=== PATIENT | male | born 1990 | race Caucasian/White ===

== ENCOUNTER 2018-04-23 14:55 | Observation (INO) ==
[2018-04-23] MEDS ORDERED: Aspirin 81 MG TAB.CHEW PO ONE (15:17)
[2018-04-23] MEDS ORDERED: 0.9 % Sodium Chloride 1,000 ML IVC ONE (15:18)
--- NOTE | 2018-04-23 15:43 | Emergency Department Note ---
Disposition Clinical Impression: Tachycardia, Pleuritic chest pain Pneumonia Qualifiers: Pneumonia type: due to unspecified organism Laterality: unspecified laterality Lung location: unspecified part of lung Qualified Code(s): J18.9 - Pneumonia, unspecified organism Disposition: Admitted As Inpatient Condition: Fair Referrals: NONE,PCP [Primary Care Provider] - Forms: ED Satisfaction Letter General Adult HPI - General Chief complaint: ED Chest Pain Stated complaint: CP Time Seen by Provider: 04/23/18 15:03 Source: patient Mode of arrival: ambulatory Limitations: no limitations Nursing Notes Reviewed: Yes Vital Signs Reviewed: Yes - History of Present Illness HPI Narrative: 27-year-old male in no significant past medical history presenting to the emergency department chief complaint chest pain and shortness of breath. Patient states for approximately one week he has not been feeling well. He has had 2-3 loose stools a day, fevers at home controlled with ibuprofen. Yesterday he started having some shortness of breath and left-sided chest pain. Patient states the pain radiated down his left arm. Denies diaphoresis or nausea at that time. Patient has only tried ibuprofen for this at home. Denies any cardiac history. Denies being on any anticoagulation. Denies any known sick contacts. Patient denies any history of PE or DVT. Denies any hormone replacement therapy but he does [place]. Pain Scale: 6 - Related Data Home Medications Medication Instructions Recorded Confirmed No Known Home Drugs 04/23/18 04/23/18 Allergies Allergy/AdvReac Type Severity Reaction Status Date / Time No Known Allergies Allergy Verified 10/06/17 12:01 All systems ED: reviewed and negative except as stated. Constitutional: Reports: fever, chills Eyes: Reports: as per HPI ENT ED: Reports: as per HPI Cardiovascular: Reports: chest pain, dyspnea on exertion. Denies: palpitations Respiratory: Reports: dyspnea. Denies: cough, wheezes, hemoptysis, stridor Gastrointestinal: Reports: nausea. Denies: vomiting Genitourinary: Reports: as per HPI Musculoskeletal: Reports: as per HPI Integumentary: Denies: rash Neurological: Denies: numbness, paresthesias Psychiatric: Reports: as per HPI Endocrine: Reports: as per HPI Hematological/Lymphatic: Reports: as per HPI Allergic/Immunologic: Reports: as per HPI Past Medical History - Past Medical History Attestation: Yes The following information was validated with the patient. Medical history: Reports: no medical history Psychiatric history: Reports: no psych history - Social History Smoking Status: Current some day smoker Smokeless Tobacco Status: Yes Alcohol use: Reports: occasionally Drug use: Reports: none Physical Exam - General Limitations: no limitations General appearance: alert, in no apparent distress - Head Head exam: atraumatic, normocephalic, normal inspection - Eye Eye exam: Present: normal appearance. Absent: scleral icterus, conjunctival injection - ENT ENT exam: normal exam, mucous membranes moist - Neck Neck exam: Present: normal inspection, full ROM. Absent: tenderness, meningismus - Chest Chest inspection: Present: normal inspection, symmetric chest wall rise. Absent : tenderness, rash - Respiratory Respiratory exam: Present: other (Decreased breath sounds throughout). Absent: respiratory distress, stridor - Cardiovascular Cardiovascular exam: Present: normal rhythm, tachycardia, normal heart sounds - Abdominal Exam Abdominal exam: Present: soft, Non-Tender. Absent: distention, guarding, rebound - Extremities Exam Extremities exam: Present: normal inspection, full ROM - Neurological Exam Neurological exam: Present: alert, oriented X3 - Psychiatric Psychiatric exam: Present: normal affect, normal mood - Skin Skin exam: Present: diaphoresis Course Course Narrative: 27-year-old male presenting with tachycardia, chest pain and shortness of breath. Patient has been febrile at home. Physical exam shows sinus tachycardia, diaphoretic skin but otherwise benign. We will plan to perform basic laboratory analysis including CBC, BMP, hepatic panel, troponin, EKG, chest x-ray and d-dimer. Patient is tachycardic but otherwise hemodynamically stable. Disposition pending results. Patient agrees this plan. We will also provide the patient with a liter of fluids and aspirin at this time - Reevaluation(s) Reevaluation #1: Patient d-dimer elevated. Otherwise labs unremarkable. Patient remains alert and oriented 3 in the room. Oxygen saturation stabilized. Patient still mildly tachycardic in the low 100s. We will plan to perform a CTA at this time. Disposition most likely admission but pending results. Patient agrees with this plan. Reevaluation #2: Patient CTA shows 1. Evaluation for pulmonary embolus is limited given suboptimal contrast opacification. No convincing evidence of a pulmonary embolus within the main pulmonary trunk or right/left main pulmonary arteries. 2. A masslike opacity is seen within the right middle lobe measuring 2.9 x 4.2 cm. 3. Multiple additional nodules are seen within the lungs bilaterally with surrounding ground-glass opacification most prominently involving the left lower lobe. The distribution of opacities within the lungs bilaterally is nonspecific and may represent an infectious/inflammatory versus neoplastic process. Patient remained hemodynamically stable in the room. We will provide the patient with Rocephin and Zithromax at this time. We will also perform a CT of the abdomen and pelvis to rule out any other acute abnormality possibly leading to the nodules. Patient agrees with this plan. Reevaluation #3: Patient CT of abdomen and pelvis benign. At this time will plan to admit the patient. Patient remains alert and oriented 3 in room stable vital signs. I spoke with the hospitalist institutional asset manager Dr. Kruger who agrees to accept the patient at this time. Vital Signs Temperature 98.2 F 04/23/18 15:00 Pulse Rate 114 04/23/18 15:00 Respiratory Rate 20 04/23/18 15:00 Blood Pressure 128/77 04/23/18 15:00 O2 Sat by Pulse Oximetry 95 04/23/18 15:00 Temperature 98.6 F 04/23/18 15:17 Pulse Rate 106 04/23/18 19:13 Respiratory Rate 18 04/23/18 19:13 Blood Pressure 132/80 04/23/18 19:13 O2 Sat by Pulse Oximetry 96 04/23/18 19:13 Oxygen Delivery Oxygen Delivery Room Air Medical Decision Making - Lab Data Result diagrams: 04/23/18 17:02 04/23/18 17:02 Lab Results 04/23/18 04/23/18 04/23/18 Range/Units 15:17 15:33 15:57 WBC (4.3-11.1) K/mcL RBC (4.19-5.50) M/mcL Hgb (12.9-16.9) g/dL Hct (37.5-50.1) % MCV (83.0-100.0) fL MCH (28.0-33.3) pg MCHC (31.6-35.5) g/dL RDW (11.5-14.5) % Plt Count (140-400) K/mcL MPV (9.4-12.4) fL Immature Gran % (0-4) % Seg Neutrophils % % Lymphocytes % % Monocytes % % Eosinophils % % Basophils % % Neutrophils # (1.6-8.9) K/mcL Lymphocytes # (0.6-4.6) K/mcL Monocytes # (0.0-1.3) K/mcL Eosinophils # (0.0-0.6) K/mcL Basophils # (0.0-0.2) K/mcL D-Dimer 1084 H (0-500) ng/mLFEU Sodium Cancelled Potassium Cancelled Chloride Cancelled Carbon Dioxide Cancelled BUN Cancelled Creatinine Cancelled Est GFR ( Amer) Cancelled Est GFR (Non-Af Amer) Cancelled BUN/Creatinine Ratio Cancelled Glucose Cancelled Calculated Osmolality Cancelled Calcium Cancelled Total Bilirubin Cancelled Direct Bilirubin Cancelled Indirect Bilirubin Cancelled AST Cancelled ALT Cancelled Alkaline Phosphatase Cancelled Troponin I < 0.03 (< 0.04) ng/mL Serum Total Protein Cancelled Albumin Cancelled Globulin Cancelled Albumin/Globulin Ratio Cancelled Specimen Rejected Clotted 04/23/18 04/23/18 04/23/18 Range/Units 16:16 17:02 17:02 WBC 10.0 (4.3-11.1) K/mcL RBC 5.42 (4.19-5.50) M/mcL Hgb 15.2 (12.9-16.9) g/dL Hct 43.7 (37.5-50.1) % MCV 80.6 L (83.0-100.0) fL MCH 28.0 (28.0-33.3) pg MCHC 34.8 (31.6-35.5) g/dL RDW 12.8 (11.5-14.5) % Plt Count 258 (140-400) K/mcL MPV 9.6 (9.4-12.4) fL Immature Gran % 0.4 (0-4) % Seg Neutrophils % 65.0 % Lymphocytes % 21.3 % Monocytes % 9.9 % Eosinophils % 3.0 % Basophils % 0.4 % Neutrophils # 6.5 (1.6-8.9) K/mcL Lymphocytes # 2.1 (0.6-4.6) K/mcL Monocytes # 1.0 (0.0-1.3) K/mcL Eosinophils # 0.3 (0.0-0.6) K/mcL Basophils # 0.0 (0.0-0.2) K/mcL D-Dimer (0-500) ng/mLFEU Sodium 132 L Potassium 3.9 Chloride 102 Carbon Dioxide 26 BUN 12 Creatinine 1.10 Est GFR ( Amer) > 60 Est GFR (Non-Af Amer) > 60 BUN/Creatinine Ratio 11 Glucose 102 Calculated Osmolality 274 L Calcium 8.9 Total Bilirubin 0.5 Direct Bilirubin 0.1 Indirect Bilirubin 0.4 AST 18 ALT 32 Alkaline Phosphatase 92 Troponin I (< 0.04) ng/mL Serum Total Protein 6.6 Albumin 3.8 Globulin 2.8 Albumin/Globulin Ratio 1.4 Specimen Rejected Hemolyzed - EKG Data EKG #1 EKG attestation: Yes I reviewed and interpreted this EKG. EKG results narrative: Sinus tachycardia. 120 bpm. [place] interval 130, QRS 103, QTC 385. No sign of acute ST segment elevation or ischemia. Compared to previous EKG completed on 05/16/2017 new Sinus tachycardia but otherwise no changes.
--- NOTE | 2018-04-23 15:55 | Emergency Department Note ---
Disposition Clinical Impression: Tachycardia, Pleuritic chest pain Disposition: Still a Patient Referrals: NONE,PCP [Primary Care Provider] - Forms: ED Satisfaction Letter General Adult HPI - General Chief complaint: ED Chest Pain Stated complaint: CP Time Seen by Provider: 04/23/18 15:03 Source: patient Mode of arrival: ambulatory Limitations: no limitations - History of Present Illness Pain Scale: 6 - Related Data Previous Rx's Medication Instructions Recorded Ibuprofen [Motrin] 600 mg PO TID PRN #30 tab 09/18/17 Hyoscyamine SL [Levsin SL] 0.125 mg SL TID #60 tab.subl 10/06/17 Ondansetron [Zofran] 4 mg PO Q8HR #30 tablet 10/06/17 Allergies Allergy/AdvReac Type Severity Reaction Status Date / Time No Known Allergies Allergy Verified 10/06/17 12:01 Constitutional: Reports: fever, chills Eyes: Reports: as per HPI ENT ED: Reports: as per HPI Cardiovascular: Reports: chest pain, dyspnea on exertion. Denies: palpitations Respiratory: Reports: dyspnea. Denies: cough, wheezes, hemoptysis, stridor Gastrointestinal: Reports: nausea. Denies: vomiting Genitourinary: Reports: as per HPI Musculoskeletal: Reports: as per HPI Integumentary: Denies: rash Neurological: Denies: numbness, paresthesias Psychiatric: Reports: as per HPI Endocrine: Reports: as per HPI Hematological/Lymphatic: Reports: as per HPI Allergic/Immunologic: Reports: as per HPI Past Medical History - Past Medical History Medical history: Reports: no medical history Psychiatric history: Reports: no psych history - Social History Smoking Status: Current some day smoker Smokeless Tobacco Status: Yes Alcohol use: Reports: occasionally Drug use: Reports: none Physical Exam - General Limitations: no limitations General appearance: alert, in no apparent distress Course Vital Signs Temperature 98.2 F 04/23/18 15:00 Pulse Rate 114 04/23/18 15:00 Respiratory Rate 04/23/18 15:00 Blood Pressure 128/77 04/23/18 15:00 O2 Sat by Pulse Oximetry 95 04/23/18 15:00 Temperature 98.6 F 04/23/18 15:17 Pulse Rate 121 04/23/18 15:17 Respiratory Rate 04/23/18 15:17 Blood Pressure 155/89 04/23/18 15:17 O2 Sat by Pulse Oximetry 95 04/23/18 15:17 Oxygen Delivery Oxygen Delivery Room Air Attestation Statement - Attestation Attestation: I examined this patient and my medical decision-making was reviewed with the Resident Physician. I agree with the documented findings, disposition and treatment plan as described except to the extent set forth below. 27 yo male presents emergency room for pleuritic type chest discomfort associated with shortness of breath and dyspnea on exertion. States he was unable to walk from the parking lot to the emergency room due to increasing shortness of breath. Is also complaining of pain when he takes a deep breath in. He was tachycardic and hypoxic initially. He is satting 97% sitting in the bed but is tachycardic in the 113-120 range. Given a recent travel to [place] last week in which they drove in a vehicle. Concerns for possible pulmonary embolus vs infection.
[2018-04-23] MEDS ORDERED: Isovue-370 500 ML INFUS..BTL IV ONE ×2 (16:05→16:42)
[2018-04-23] MEDS ORDERED: Azithromycin 500 MG in D5% in Water 250 ML IVPB ONE (17:16)
[2018-04-23] MEDS ORDERED: cefTRIAXone 2,000 MG in Water for inj. (sterile) 20 ML 20 ML IVP ONE (17:16)
[2018-04-23 17:25] LABS: Basophils % 0.4 %; Eosinophils # 0.3 K/mcL (0.0-0.6); Hematocrit 43.7 % (37.5-50.1); Hemoglobin 15.2 g/dL (12.9-16.9); Immature Granulocytes % 0.4 % (0-4); Lymphocytes # 2.1 K/mcL (0.6-4.6); Lymphocytes % 21.3 %; Mean Corpuscular HGB Conc 34.8 g/dL (31.6-35.5); Mean Corpuscular Volume 80.6 fL (83.0-100.0); Mean Platelet Volume 9.6 fL (9.4-12.4); Monocytes % 9.9 %; Neutrophils # 6.5 K/mcL (1.6-8.9); Platelet Count 258 K/mcL (140-400); Red Blood Count 5.42 M/mcL (4.19-5.50); Red Cell Distribution Width 12.8 % (11.5-14.5)
[2018-04-23 17:36] LABS: Alanine Aminotransferase 32 Units/L (7-52); Albumin 3.8 g/dL (3.5-5.7); Albumin/Globulin Ratio 1.4 (1.1-2.2); Alkaline Phosphatase 92 Units/L (34-104); Aspartate Amino Transferase 18 Units/L (13-39); BUN/Creatinine Ratio 11 (6-26); Bilirubin,Direct 0.1 mg/dL (0.0-0.2); Bilirubin,Indirect 0.4 mg/dL (0.0-1.2); Bilirubin,Total 0.5 mg/dL (0.3-1.0); Blood Urea Nitrogen 12 mg/dL (6-20); Calcium 8.9 mg/dL (8.6-10.3); Carbon Dioxide 26 mEq/L (23-29); Chloride 102 mEq/L (98-107); Globulin 2.8 g/dL (2.4-3.5); Glucose 102 mg/dL (70-105); Osmolality,Calculated 274 (280-300); Potassium 3.9 mEq/L (3.5-5.1); Sodium 132 mEq/L (136-145); Total Protein 6.6 g/dL (6.4-8.9); eGFR For Non-African Americans > 60 (> 60)
[2018-04-23] MEDS ORDERED: *HR* Enoxaparin 100 MG/ML SYRINGE SQ STA (19:25)
[2018-04-23] MEDS ORDERED: Naloxone 0.4 MG/ML INJ IVP PRN (20:49)
--- NOTE | 2018-04-23 20:55 | Internal Med History&Physical ---
Date of Encounter: 04/24/18 Time of Encounter: 20:52 Internal Medicine - H&P: HPI Chief complaint: chest pain SOB History of present illness: Mr. Perkins is a 27 year old male obese tobacco user presented to ED with shortness of breath and chest pain. Cough, fatigue, and shortness of breath onset Friday. Associated symptoms of elevated temperature to 100 and occasional blurry vision. Left sided chest pain radiates to left shoulder blade and neck with sharp and achy pain onset Friday morning upon waking. Also having intermittent sharp left thigh pain but no swelling. 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 One episode of loose stool and abdominal pain on Friday that has since resolved. In ED, afebrile HR 121 BP 155/89 and RR 20 with 95% RA. EKG no acute ischemia and troponin negative. Elevated D-dimer 1084. CTA poor study with masslike opacity R middle lobe and no main artery PE but can not rule out PE thus given one dose of lovenox. Diagnosed with PNA and started on ceftriaxone and azithromycin. CBC wnl and CMP with mild hyponatremia 132. No known past medical history besides once told pre-HTN at screening but takes no medications - no personal history of cancer, PE, DVT, or DM . No family history of IA, bleeding disorder or clots. Tobacco; chews 4 cans per week plus occasional 1 pk per day. EtOH 1-2 beers per week. Lázaro illicit substances. Past Med Surg Social Fam HX - Past Medical History Medical history: no medical history Psychiatric history: no psych history - Social History Smoking Status: Current some day smoker Smokeless Tobacco Status: Yes Alcohol use: occasionally Drug use: none - Family History Mother Hx Family Cancer: Yes (skin unknown type) Grandfather Hx Family Cancer: Yes (Lung cancer) Internal Medicine - H&P: Meds No Known Home Drugs 04/23/18 [History] 3 Allergy/AdvReac Type Severity Reaction Status Date / Time No Known Allergies Allergy Verified 10/06/17 12:01 All Systems PM: A 10-system review of systems was performed and is negative for pertinent findings except as documented above in the HPI. - Constitutional Constitutional: fatigue, fever(s), malaise - EENT Eyes: blurry vision - Cardiovascular Cardiovascular ROS IM: chest pain, dyspnea on exertion, no palpitations, no syncope - Respiratory Respiratory: cough, dyspnea on exertion, no wheezing - Gastrointestinal Gastrointestinal: abdominal pain, diarrhea, no hematochezia, no nausea, no vomiting - Genitourinary Genitourinary ROS male: no dysuria, no urinary frequency, no urinary incontinence - Musculoskeletal Musculoskeletal ROS IM: arthralgias, no numbness, no tingling - Neurological Neurological ROS: no headache(s), no numbness - Constitutional Vitals: Temp Pulse Resp BP Pulse Ox 98.6 F 105 12 140/78 94 04/23/18 15:17 04/23/18 20:50 04/23/18 20:50 04/23/18 20:50 04/23/18 20:50 General appearance: Present: A&O X 3, morbidly obese, pleasant, no acute distress, answers questions appropriately Exam: Resting comfortably in bead - Head Head exam: Present: atraumatic, normocephalic - Eye Eye exam: Present: EOMI, PERRL - ENT ENT exam: Present: mucous membranes moist, normal oropharynx - Respiratory Respiratory exam: Present: CTAB. Absent: rales, wheezes - Cardiovascular Cardiovascular exam: Present: RRR. Absent: gallop, rubs - GI/Abdominal GI/Abdominal exam: Present: distended, normal bowel sounds, soft. Absent: mass , tenderness - Extremities Exam Extremities exam: Present: full ROM, radial pulses palpable and symmetrical. Absent: pedal edema, tenderness Additional comments: warm equal bilat, no apparent swelling or erythema - Psychiatric Psychiatric exam: Present: normal affect, normal mood - Skin Skin exam: Present: intact. Absent: diaphoretic, erythema Internal Med - H&P Results - Labs CBC & Chem 7: 04/23/18 17:02 04/23/18 17:02 - Assessment and plan (1) Pneumonia Current Visit: Yes Status: Acute Assessment and plan: Likely community acquired PNA with WBC and nonspecific CTA mass like opacity in right middle lobe with bilat nodules surrounded by ground glass worse in left lower lobe - continue azithromycin and ceftriaxone - repeat CBC in morning - received 1 L IVF in ED, continued 1L overnight - needs PCP for f/u x-ray as out patient - consult social work (2) Pleuritic chest pain Current Visit: Yes Status: Acute Assessment and plan: Pain and elevated D-dimer mostly due to PNA but can not rule out PE due to CTA poor study. Unlikely to be ACS - ED gave one dose lovenox - US left LE: - trend troponins I spoke with CT about poor study and they explained that difficult in timing contract with obese patient with tachycardia. Per radiology as he recived two doses of contrast he can not have another for 24 hrs with next at 5pm Friday. But Dr Justin does not have high concern for PE. - consider CTA per dayteam - another dose of lovenox in morning to cover until 5pm (3) DVT prophylaxis Current Visit: Yes Status: Acute Assessment and plan: lovenox given once - Time Spent With Patient Total time spent is greater than 50% in coordination of care (as documented) at patient's floor/unit and/or counseling patient: Greater than 35 minutes
[2018-04-23 21:09] LABS: Bilirubin,Urine Negative (Negative); Blood,Urine Negative (Negative); Clarity,Urine Clear (Clear); Color,Urine Yellow (Yellow); Glucose,Urine (UA) Normal (Normal); Ketones,Urine Negative (Negative); Leukocyte Esterase,Urine Negative (Negative); Nitrite,Urine Negative (Negative); Protein,Urine Negative (Neg-Trace); Specific Gravity,Urine > 1.030 (1.010-1.025); Urobilinogen,Urine Normal (Normal)
[2018-04-23] MEDS ORDERED: 0.9 % Sodium Chloride 1,000 ML IVC SCH (22:30)
[2018-04-24] MEDS: Acetaminophen 325 MG TABLET PO PRN ×2 (03:39→12:28)
[2018-04-24 03:40] LABS: Basophils % 0.3 %; Eosinophils # 0.3 K/mcL (0.0-0.6); Eosinophils % 3.1 %; Hemoglobin 14.7 g/dL (12.9-16.9); Immature Granulocytes % 0.4 % (0-4); Lymphocytes # 1.8 K/mcL (0.6-4.6); Lymphocytes % 19.5 %; Mean Corpuscular Hemoglobin 27.8 pg (28.0-33.3); Mean Corpuscular Volume 79.4 fL (83.0-100.0); Mean Platelet Volume 9.4 fL (9.4-12.4); Monocytes # 0.9 K/mcL (0.0-1.3); Monocytes % 9.4 %; Neutrophils # 6.3 K/mcL (1.6-8.9); Platelet Count 221 K/mcL (140-400); Red Blood Count 5.29 M/mcL (4.19-5.50); Red Cell Distribution Width 12.7 % (11.5-14.5); Segmented Neutrophils % 67.3 %
[2018-04-24 03:47] LABS: INR 1.1; Prothrombin Time 12.7 Seconds (9.4-12.1)
[2018-04-24] MEDS ORDERED: Ondansetron 4 MG/2 ML VIAL IVP PRN (03:48)
[2018-04-24 03:59] LABS: BUN/Creatinine Ratio 13 (6-26); Blood Urea Nitrogen 12 mg/dL (6-20); Calcium 8.8 mg/dL (8.6-10.3); Carbon Dioxide 22 mEq/L (23-29); Chloride 105 mEq/L (98-107); Glucose 108 mg/dL (70-105); Osmolality,Calculated 278 (280-300); Sodium 134 mEq/L (136-145); eGFR For Non-African Americans > 60 (> 60)
[2018-04-24] MEDS ORDERED: Enoxaparin Weight Dosing SQ SCH (09:30)
--- NOTE | 2018-04-24 11:40 | Internal Med Progress Note ---
Hospitalist Progress Note - Encounter Date of Encounter: 04/24/18 Time of Encounter: 11:40 - Subjective Interval History: 27-year-old male, history of tobacco smoking and chewing presented with chest pain which was said to be pleuritic in nature, and low-grade fever at home. No fever documented in this chart, no leukocytosis, cultures are preliminary negative. Due to elevated d-dimer, CT angiogram was done in the ER which revealed multiple nodules and enlarged masslike lesion 2 x 2 centimeters said to be inflammatory versus infectious versus neoplastic. The patient is an IV drug user and has no peripheral stigmata of infective endocarditis. The patient reports chest pain has resolved, he has no cough, he has no hemoptysis, he has no unintentional weight loss and has been gaining weight steadily in the past few years. He has no family history of cancer. Tachycardia on arrival has resolved, he has no hypoxia and is currently not tachycardic. He has no leukocytosis. - Exam Vitals: Temp Pulse Resp BP Pulse Ox 98.2 F 97 15 138/74 95 04/24/18 11:33 04/24/18 11:33 04/24/18 11:33 04/24/18 11:33 04/24/18 11:33 Exam: Gen.: No acute distress, alert and oriented 3 ENT: Mucosal membranes moist Respiratory: Lungs are clear to auscultation bilaterally without any wheezing rhonchi or rales Cardiovascular: Normal S1 and S2 regular rate rhythm no murmurs rubs or gallops Abdomen: Soft, non-tender and non-distended with positive bowel sounds Extremities: No lower extremity edema Neuro: AAOX3, no speech deficits, no facial paralysis, moves all limbs spontaneously Skin: No rash/jaundice - Assessment and Plan (1) Obesity Current Visit: Yes Status: Chronic Assessment and Plan: encourage lifestyle modification (2) Lung mass Current Visit: Yes Status: Acute Assessment and Plan: Will consult pulmonology (3) DVT prophylaxis Current Visit: Yes Status: Acute Assessment and Plan: SQ heparin (4) Pneumonia Current Visit: Yes Status: Acute Assessment and Plan: Suspected Continue ceftriaxone and azithromycin Patient is not hypoxic, nor septic No leukocytosis Obtain ECHO Await final blood culture report (5) Tobacco abuse Current Visit: Yes Status: Acute Assessment and Plan: NRT Educated on cessation (6) Pleuritic chest pain Current Visit: Yes Status: Acute Assessment and Plan: Patient reports resolution - Time Spent with Patient Total time spent is greater than 50% in coordination of care (as documented) at patient's floor/unit and/or counseling patient: Internal Medicine: Result - Labs CBC & Chem 7: 04/24/18 03:30 04/24/18 03:30 Labs: Short CBC 04/24/18 Range/Units 03:30 WBC 9.4 (4.3-11.1) K/mcL Hgb 14.7 (12.9-16.9) g/dL Hct 42.0 (37.5-50.1) % Plt Count 221 (140-400) K/mcL Neutrophils # 6.3 (1.6-8.9) K/mcL BMP 04/24/18 03:30 Sodium 134 L Potassium 4.0 Chloride 105 Carbon Dioxide 22 L BUN 12 Creatinine 0.95 Glucose 108 H Calcium 8.8 Cardiac Enzymes 04/23/18 04/24/18 04/24/18 Range/Units 21:23 03:30 09:10 Troponin I < 0.03 < 0.03 < 0.03 (< 0.04) ng/mL Urine 04/23/18 Range/Units 20:44 Urine Color Yellow (Yellow) Urine Clarity Clear (Clear) Urine pH 6.0 (5.0-8.0) pH Units Ur Specific Simpson > 1.030 H (1.010-1.025) Urine Protein Negative (Neg-Trace) mg/dL Urine Glucose (UA) Normal (Normal) mg/dL - ABG Interpretation ABG results: PT/INR, D-dimer PT 12.7 Seconds (9.4-12.1) H 04/24/18 03:30 D-Dimer 1084 ng/mLFEU (0-500) H 04/23/18 15:33 Consult Discharge Plan - Plan Referrals: Omer Shepard MD [Partnered Physician] - 05/06/18 10:45 am (You will have to arrive 30 minutes early to your appointment to fill out paperwork. Please bring ID, insurances, and current medication lists. We are located in the medical office building, [address]. If you need to reschedule, please call 24 hours before your appointment date. Thank you. ) (1) Obesity Qualifiers: Obesity type: unspecified obesity type Obesity classification: adult class 3 (BMI >= 40) Serious obesity comorbidity presence: without serious comorbidity Body mass index: BMI 45.0-49.9 Qualified Code(s): E66.01 - Morbid (severe) obesity due to excess calories; Z68.42 - Body mass index (BMI) 45.0-49.9, adult (4) Pneumonia Qualifiers: Pneumonia type: due to unspecified organism Laterality: unspecified laterality Lung location: unspecified part of lung Qualified Code(s): J18.9 - Pneumonia, unspecified organism
[2018-04-24] MEDS: Nicotine 7 MG PATCH.TD24 TD SCH (13:02)
--- NOTE | 2018-04-24 17:10 | Electrocardiograph Report ---
[place] [id number] Test Date: 2018-04-23 Pat Name: Trae Perkins Department: [id number] Room: 3B Gender: M Window Tinter: : 1990 Requested By: Megan Dias Order Number: [id number] Reading MD: Chasity Castrejon Measurements Intervals [place] Rate: 121 P: 45 WI: 130 QRS: 74 QRSD: 103 T: -66 QT: 271 QTc: 385 Interpretive Statements Sinus tachycardia Nonspecific repol abnormality, diffuse leads Electronically Signed On 04-24-2018 17:09:16 EDT by Chasity Castrejon
--- NOTE | 2018-04-24 17:38 | Pulmonology Consult Note ---
<BinaElena coleman - Last Filed: 04/24/18 17:58> Date of Encounter: 04/24/18 Time of Encounter: 17:14 Assessment and Plan (1) Sleep apnea Current Visit: Yes Status: Chronic Pt complains of dry mouth in the morning, complains of sleeping and disruptions in breathing. - Please follow up outpatient in the clinic for a sleep study. Qualifiers: Sleep apnea type: unspecified type Qualified Code(s): G47.30 - Sleep apnea , unspecified (2) Pneumonia Current Visit: Yes Status: Acute -Pt tx with Azithromycin 500mg, depending upon bronch results, adjust medications to provide coverage as necessary for infectious/inflammatory etiologies Qualifiers: Pneumonia type: due to unspecified organism Laterality: unspecified laterality Lung location: unspecified part of lung Qualified Code(s): J18.9 - Pneumonia, unspecified organism (3) Lung mass Current Visit: Yes Status: Acute -mass like opacity seen on Chest CTA in RML measuring 2.9x4.2cm, along with multiple additional nodules seen in homer lungs - we recommend bronchoscopy with BAL to be performed on 04/24/18 to further elucidate the cause and origin of the mass/nodules - Testing for infectious/inflammatory processes to include HIV testing, respiratory infection panel, sputum cultures, legionella and S pna antigen urine testing, cryptococcal antigen, urine histoplasmosis, urine aspergillosis, Tgbv-t-jolhyf, galactomannan, fungal EIA, CCP Igg, POORNIMA, ANCA, DIANA level, Rheumatoid factor. 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 On 04/20, he started with myalgias and general feelings of exhaustion. By 04/22 he developed a cough productive of yellow/green sputum, without evidence of blood, and temperatures around 99.9 taken orally. He presented to the ED on 04/23, had a CXR, was dx with PNA and admitted to the floor for further management. During his workup-up in the ED, they were concerned for PE because of his dyspnea and he had a CTA which showed a questionable mass in his right lung, along with nodules bilaterally. The pt reports that he has no medical history, takes no medications, has no allergies, has never been hospitalized before, has never had pneumonia before, and has never had any surgeries. He eats a regular diet consisting mostly of fast food, does not participate in any regular exercise, and smokes about a pack of cigarettes each week and has for the last 5-6 months, in addition to chewing tobacco which has has used since he was [age] years old. He denies illicit drugs including marijuana, denies foreign travel, denies any new foods. Sick contacts include his zssczy-zp-sqa about a week prior, and about a month prior. He denies HINOJOSA, runny nose, sore throat, abdominal pain, N/V, numbness or tingling, back pain, weight loss, or night sweats. He denies any heat or cold intolerance. He endorses one loose stool on Friday night, but had a normal bowel movement yesterday. He also endorses some dyspnea with exertion along with accompanying chest pain, and some blurry vision on Friday that has since resolved. Past Med Surg Social Fam HX - Past Medical History Medical history: no medical history Psychiatric history: no psych history - Past Surgical History Surgical History: no surgical history - Social History Smoking Status: Current some day smoker Smokeless Tobacco Status: Yes Alcohol use: occasionally Drug use: none - Family History Mother Hx Family Cancer: Yes (skin unknown type) Grandfather Hx Family Cancer: Yes (Lung cancer) Medications and Allergies No Known Home Drugs 04/23/18 [History] 3 Allergy/AdvReac Type Severity Reaction Status Date / Time No Known Allergies Allergy Verified 10/06/17 12:01 All Systems: The remainder of the systems were reviewed and are negative - Constitutional Constitutional: as per HPI - EENT Eyes: as per HPI - Cardiovascular Cardiovascular: as per HPI - Respiratory Respiratory: as per HPI - Gastrointestinal Gastrointestinal: as per HPI - Neurological Neurological: as per HPI - Endocrine Endocrine: as per HPI Physical Examination Vital Signs: Vital Signs, Last 4 Hours Temp Pulse Resp BP Pulse Ox 04/24/18 15:46 98.1 F 94 15 143/85 94 General appearance: no acute distress Eyes: nonicteric ENT: oropharynx moist Neck: supple Effort: normal Inspection: normal Auscultation: bilateral: clear Cardiovascular: regular rate and rhythm Gastrointestinal: normoactive bowel sounds Integumentary: normal Extremities: no cyanosis, no edema, no clubbing Musculoskeletal: no deformities normal mental status, non-focal exam mood appropriate, affect normal Results - Laboratory Findings CBC and BMP: 04/24/18 03:30 04/24/18 03:30 PT/INR, D-dimer PT 12.7 Seconds (9.4-12.1) H 04/24/18 03:30 D-Dimer 1084 ng/mLFEU (0-500) H 04/23/18 15:33 Abnormal lab findings: Abnormal lab results MCV 79.4 fL (83.0-100.0) L 04/24/18 03:30 MCH 27.8 pg (28.0-33.3) L 04/24/18 03:30 PT 12.7 Seconds (9.4-12.1) H 04/24/18 03:30 D-Dimer 1084 ng/mLFEU (0-500) H 04/23/18 15:33 Sodium 134 mEq/L (136-145) L 04/24/18 03:30 Carbon Dioxide 22 mEq/L (23-29) L 04/24/18 03:30 Glucose 108 mg/dL (70-105) H 04/24/18 03:30 Calculated Osmolality 278 (280-300) L 04/24/18 03:30 Ur Specific [place] > 1.030 (1.010-1.025) H 04/23/18 20:44 - Diagnostic Findings Chest x-ray: report reviewed, image reviewed CT scan - chest: report reviewed, image reviewed - Clinical Findings Intake & Output: Intake & Output 04/24/18 04/24/18 04/24/18 07:59 15:59 23:59 Intake Total 1000 / 1000 240 / 240 Output Total 1950 / 1950 550 / 550 Balance -950 / -950 -310 / -310 Consult Discharge Plan - Plan Referrals: Omer Shepard MD [Partnered Physician] - 05/06/18 10:45 am (You will have to arrive 30 minutes early to your appointment to fill out paperwork. Please bring ID, insurances, and current medication lists. We are located in the medical office building, [address]. If you need to reschedule, please call 24 hours before your appointment date. Thank you. ) <FernMalcom W - Last Filed: 04/25/18 06:36> Date of Encounter: 04/25/18 All Systems: The remainder of the systems were reviewed and are negative Physical Examination Vital Signs: Vital Signs, Last 4 Hours Temp Pulse Resp BP Pulse Ox 04/25/18 04:40 97.5 F L 89 16 112/75 95 Results - Laboratory Findings CBC and BMP: 04/24/18 03:30 04/24/18 03:30 PT/INR, D-dimer PT 12.7 Seconds (9.4-12.1) H 04/24/18 03:30 D-Dimer 1084 ng/mLFEU (0-500) H 04/23/18 15:33 Abnormal lab findings: Abnormal lab results MCV 79.4 fL (83.0-100.0) L 04/24/18 03:30 MCH 27.8 pg (28.0-33.3) L 04/24/18 03:30 PT 12.7 Seconds (9.4-12.1) H 04/24/18 03:30 D-Dimer 1084 ng/mLFEU (0-500) H 04/23/18 15:33 Sodium 134 mEq/L (136-145) L 04/24/18 03:30 Carbon Dioxide 22 mEq/L (23-29) L 04/24/18 03:30 Glucose 108 mg/dL (70-105) H 04/24/18 03:30 Calculated Osmolality 278 (280-300) L 04/24/18 03:30 Ur Specific [place] > 1.030 (1.010-1.025) H 04/23/18 20:44 - Microbiology Findings Microbiology Findings: Microbiology, Last 48 Hours 04/25/18 00:36 Sputum Culture - Final Sputum 04/24/18 18:53 Legionella Antigen - Final Urine,Clean Catch Streptococcus pneumoniae Antigen (M - Final - Clinical Findings Intake & Output: Intake & Output 09/21/18 09/21/18 09/22/18 15:59 23:59 07:59 Intake Total 240 / 240 Output Total 550 / 550 1350 / 1350 1000 / 1000 Balance -310 / -310 -1350 / -1350 -1000 / -1000 Weight 173 kg - Attending Attestation I examined this patient and my medical decision-making was reviewed with the Resident Physician. I agree with the documented findings, disposition and treatment plan as described except to the extent set forth below. We independently had [id number]-[id number] contact with the patient Patient seen and examined at bedside Labs, radiology, chart personally reviewed. Impression: PNA Lung Nodules suspect infectious etiology fungal exposure not excluded doubt malignacy Suspected LETICIA Recs: infectious/inflammatory cultures/serologies bronchoscopy (keep NPO at [place]) pulmonary f/u for repeat CT scan of chest 4-6 weeks outpatient PSG Thank you for this consultation
--- NOTE | 2018-04-24 17:42 | Event Note ---
Date of Encounter: 04/24/18 Time of Encounter: 17:41 Patient with bilateral lung nodules and a right-sided lung mass concerning for infectious pneumonia given age cannot rule out inflammatory process full note to come but I did speak with the patient about the need for bronchoscopy A bronchoscopy is recommended. The procedure , risks, benefits, complications, and expected outcomes have been reviewed. Benefits of diagnosis, as well as risks to include bleeding, infection, pneumothorax which may require surgical intervention, and in a small population. The patient is aware that sometimes test is nondiagnostic. Discussed with patient and agrees to proceed. Please keep nothing by mouth at midnight
[2018-04-24 20:41] LABS: Adenovirus Not Detected (Not Detect); Bordetella Pertussis Not Detected (Not Detect); Chlamydophila pneumoniae Not Detected (Not Detect); Coronavirus 229E Not Detected (Not Detect); Coronavirus HKU1 Not Detected (Not Detect); Coronavirus NL63 Not Detected (Not Detect); Coronavirus OC43 Not Detected (Not Detect); Human Metapneumovirus Not Detected (Not Detect); Human Rhinovirus/Enterovirus Not Detected (Not Detect); Influenza A Subtype 2009 H1 Not Detected (Not Detect); Influenza A Untypeable Not Detected (Not Detect); Influenza B Not Detected (Not Detect); Mycoplasma pneumoniae Not Detected (Not Detect); Parainfluenza Virus 1 Not Detected (Not Detect); Parainfluenza Virus 2 Not Detected (Not Detect); Parainfluenza Virus 3 Not Detected (Not Detect); Parainfluenza Virus 4 Not Detected (Not Detect); Respiratory Syncytial Virus Not Detected (Not Detect)
[2018-04-25] MEDS: Acetaminophen 325 MG TABLET PO PRN (00:21)
[2018-04-25] MEDS ORDERED: Tetracaine/Benzocaine/Butamben 1 SPRAY AEROSOL MM ONE (06:45)
[2018-04-25] MEDS ORDERED: *HR* EPINEPHrine 1 MG/10 ML SYRINGE INTRATRACH PRN (06:45)
[2018-04-25] MEDS ORDERED: Ringers Solution, Lactated 1,000 ML IVC SCH (06:45)
[2018-04-25] MEDS ORDERED: Albuterol 2.5 MG/3 ML NEBULIZER IH ONE (06:45)
[2018-04-25] MEDS ORDERED: *HR* FentaNYL (PF) 100 MCG/2 ML VIAL IVP ONE (06:45)
[2018-04-25] MEDS ORDERED: *HR* Midazolam HCl 5 MG/5 ML VIAL IVP ONE ×2 (06:45→07:40)
--- NOTE | 2018-04-25 06:45 | Pulmonology Progress Note ---
Date of Encounter: 04/25/18 Time of Encounter: 06:45 Assessment and Plan (1) Pneumonia Current Visit: Yes Status: Acute Culture this far negative. I suspect patient can be de-escalated to Oral respiratory fluoroquinolone to complete 7-10 day course Qualifiers: Pneumonia type: due to unspecified organism Laterality: unspecified laterality Lung location: unspecified part of lung Qualified Code(s): J18.9 - Pneumonia, unspecified organism (2) Lung mass Current Visit: Yes Status: Acute Patient has evidence of a right-sided lung mass but bilateral lung nodules concerning for an infectious process. Very unlikely that this is primary lung malignancy Cultures are been obtained including blood sputum and urine Also recommend inflammatory serologies as cannot rule out a connective tissue disease or sarcoidosis although this is thought to be less likely I will infection not excluded especially given the patient's occupational history I have added on fungal serologies to this Clinically quite stable from pulmonary perspective no need to continue inpatient treatment once deemed a candidate for discharge by the primary team he should follow up with pulmonary in 1-2 weeks to discuss laboratory findings and results of culture from bronchoscopy (3) Sleep apnea Current Visit: Yes Status: Chronic High pretest probability for obstructive sleep apnea he will need an outpatient polysomnogram Possible adverse effects of untreated sleep apnea explained including increased risk of stroke, hypertension, headaches, and pulmonary hypertension. Advised not to drive if sleepy as untreated LETICIA can cause motor vehicle accidents. Pulmonary will sign off thank you for this consultation please call with questions Qualifiers: Sleep apnea type: unspecified type Qualified Code(s): G47.30 - Sleep apnea , unspecified Subjective Principal diagnosis: Pneumonia Interval history: Patient has done well overnight remains afebrile underwent bronchoscopy today without any evidence of endobronchial lesion that was scattered evidence of inflammation was notable for right middle lobe. BAL was obtained bilaterally from the right middle lobe as well as the left lower lobe. Objective PUL Vital signs: Last Vital Signs Temp 97.5 F L 04/25/18 04:40 Pulse 89 04/25/18 04:40 Resp 16 04/25/18 04:40 BP 112/75 04/25/18 04:40 Pulse Ox 95 04/25/18 04:40 General appearance: no acute distress Eyes: nonicteric ENT: oropharynx moist Mallampati (class): 4 Neck: supple Auscultation: bilateral: diminished breath sounds Cardiovascular: regular rate and rhythm Gastrointestinal: normoactive bowel sounds Integumentary: normal Extremities: no cyanosis, no edema, no clubbing Musculoskeletal: no deformities normal mental status, non-focal exam mood appropriate Results - Laboratory Findings CBC and BMP: 04/24/18 03:30 04/24/18 03:30 PT/INR, D-dimer PT 12.7 Seconds (9.4-12.1) H 04/24/18 03:30 D-Dimer 1084 ng/mLFEU (0-500) H 04/23/18 15:33 Abnormal lab findings: Abnormal lab results MCV 79.4 fL (83.0-100.0) L 04/24/18 03:30 MCH 27.8 pg (28.0-33.3) L 04/24/18 03:30 PT 12.7 Seconds (9.4-12.1) H 04/24/18 03:30 D-Dimer 1084 ng/mLFEU (0-500) H 04/23/18 15:33 Sodium 134 mEq/L (136-145) L 04/24/18 03:30 Carbon Dioxide 22 mEq/L (23-29) L 04/24/18 03:30 Glucose 108 mg/dL (70-105) H 04/24/18 03:30 Calculated Osmolality 278 (280-300) L 04/24/18 03:30 Ur Specific [place] > 1.030 (1.010-1.025) H 04/23/18 20:44 - Microbiology Findings Microbiology Findings: Microbiology, Last 48 Hours 04/25/18 00:36 Sputum Culture - Final Sputum 04/24/18 18:53 Legionella Antigen - Final Urine,Clean Catch Streptococcus pneumoniae Antigen (M - Final - Clinical Findings Intake & Output: Intake & Output 04/24/18 04/24/18 04/25/18 15:59 23:59 07:59 Intake Total 240 / 240 Output Total 550 / 550 1350 / 1350 1000 / 1000 Balance -310 / -310 -1350 / -1350 -1000 / -1000 Weight 173 kg Consult Discharge Plan - Plan Referrals: Omer Shepard MD [Partnered Physician] - 05/06/18 10:45 am (You will have to arrive 30 minutes early to your appointment to fill out paperwork. Please bring ID, insurances, and current medication lists. We are located in the medical office building, [address]. If you need to reschedule, please call 24 hours before your appointment date. Thank you. )
--- NOTE | 2018-04-25 06:45 | Pre-Sedation Evaluation ---
Pre-sedation evaluation - Pre-sedation checklist Date of procedure: 04/25/18 Procedure: bronchoscopy Recent Vitals: Last Vital Signs Temp 97.5 F L 04/25/18 04:40 Pulse 89 04/25/18 04:40 Resp 16 04/25/18 04:40 BP 112/75 04/25/18 04:40 Pulse Ox 95 04/25/18 04:40 H&P (including ROS) documented in medical record: Yes Previous reaction to sedatives/anesthetics: Unknown Dietary Status: NPO after Midnight Dentition: No loose teeth or bridges Possible difficult airway: Yes If Yes;: Macroglossia, Morbid obesity, Enlarged neck circumference, short neck ASA Classification *see protocol: CLASS I-Normal, healthy patient Plan of Care: Pt appropriate candidate for procedure/moderate/conscious sedation , Risks/benefits of procedure/sedation discussed w/ patient/family Cardiac Registry (Cardio Only) - Functional Capacity - Clincal Frailty Scale
[2018-04-25] MEDS ORDERED: Lidocaine Viscous Oral Soln 15 ML SOLUTION ONE (07:41)
[2018-04-25] MEDS ORDERED: *HR* FentaNYL (PF) 100 MCG/2 ML VIAL ONE (07:41)
[2018-04-25] MEDS: Nicotine 7 MG PATCH.TD24 TD SCH (10:16)
[2018-04-25] MEDS: cefTRIAXone 1,000 MG in Water for inj. (sterile) 20 ML 10 ML IVP SCH (10:17)
[2018-04-25] MEDS: Fluconazole 100 MG TABLET PO SCH (10:17)
[2018-04-25] MEDS: Azithromycin 500 MG in D5% in Water 250 ML IVPB SCH (10:18)
--- NOTE | 2018-04-25 11:06 | Internal Med Progress Note ---
Hospitalist Progress Note - Encounter Date of Encounter: 04/25/18 Time of Encounter: 11:06 - Subjective Interval History: 27-year-old male, history of tobacco smoking and chewing presented with chest pain which was said to be pleuritic in nature, and low-grade fever at home. No fever documented in this chart, no leukocytosis, cultures are preliminary negative. Due to elevated d-dimer, CT angiogram was done in the ER which revealed multiple nodules and enlarged masslike lesion 2 x 2 centimeters said to be inflammatory versus infectious versus neoplastic. He is s/p bronchoscopy this a.m, work up pending Cryptococcal Ag positive in serum He is seen and evaluated at bedside, he states he is in his best form since his symptoms began - Exam Vitals: Temp Pulse Resp BP Pulse Ox 97.8 F 105 16 129/80 91 04/25/18 08:38 04/25/18 08:38 04/25/18 08:38 04/25/18 08:38 04/25/18 08:38 Exam: Gen.: No acute distress, alert and oriented 3, morbidly obese ENT: Mucosal membranes moist Respiratory: Lungs are clear to auscultation bilaterally without any wheezing rhonchi or rales Cardiovascular: Normal S1 and S2 regular rate rhythm no murmurs rubs or gallops Abdomen: Soft, non-tender and non-distended with positive bowel sounds Extremities: No lower extremity edema Neuro: AAOX3, no speech deficits, no facial paralysis, moves all limbs spontaneously Skin: No rash/jaundice - Assessment and Plan (1) Obesity Current Visit: Yes Status: Chronic Assessment and Plan: encourage lifestyle modification (2) Lung mass Current Visit: Yes Status: Acute Assessment and Plan: s/p bronch, culture and cytology sent, will follow up with pulmonology as outpatient (3) DVT prophylaxis Current Visit: Yes Status: Acute Assessment and Plan: SQ heparin (4) Pneumonia Current Visit: Yes Status: Acute Assessment and Plan: Steve cryptococcal Patient with significant occupational exposure s/p bronch due to diffuse nodules, cytology, biopsy and cultures sent Serum Cryptococcal Ag positive Patient started on cef/azithro IV with plan to de-escalate and discharge after Infectious disease eval for suspected cryptococcal Ag Started on fluconazole (treatment will be 6-12 months ) if confirmed HIV screening done and pending Resp panel negative (5) Tobacco abuse Current Visit: Yes Status: Chronic Assessment and Plan: NRT Educated on cessation (6) Pleuritic chest pain Current Visit: Yes Status: Resolved Assessment and Plan: Patient reports resolution (7) Cryptococcus Current Visit: Yes Status: Acute Assessment and Plan: Cryptococcal Ag positive Diffuse lung nodules and significant mass, s/p bronch Continue fluconazole Infectious disease eval will be requested - Time Spent with Patient Total time spent is greater than 50% in coordination of care (as documented) at patient's floor/unit and/or counseling patient: Plan of Care Discussed with: patient Internal Medicine: Result - Labs CBC & Chem 7: 04/24/18 03:30 04/24/18 03:30 - ABG Interpretation ABG results: PT/INR, D-dimer PT 12.7 Seconds (9.4-12.1) H 04/24/18 03:30 D-Dimer 1084 ng/mLFEU (0-500) H 04/23/18 15:33 Consult Discharge Plan - Plan Referrals: Omer Shepard MD [Partnered Physician] - 05/06/18 10:45 am (You will have to arrive 30 minutes early to your appointment to fill out paperwork. Please bring ID, insurances, and current medication lists. We are located in the medical office building, [address]. If you need to reschedule, please call 24 hours before your appointment date. Thank you. ) (1) Obesity Qualifiers: Obesity type: unspecified obesity type Obesity classification: adult class 3 (BMI >= 40) Serious obesity comorbidity presence: without serious comorbidity Body mass index: BMI 45.0-49.9 Qualified Code(s): E66.01 - Morbid (severe) obesity due to excess calories; Z68.42 - Body mass index (BMI) 45.0-49.9, adult (4) Pneumonia Qualifiers: Pneumonia type: due to unspecified organism Laterality: unspecified laterality Lung location: unspecified part of lung Qualified Code(s): J18.9 - Pneumonia, unspecified organism
[2018-04-25 12:13] LABS: Appearance of Body Fluid Slightly Hazy (Clear); Source of Body Fluid right middle lobe BA; Volume of Body Fluid 15 mL
[2018-04-25 12:19] LABS: Appearance of Body Fluid Clear (Clear); Volume of Body Fluid 4 mL
[2018-04-25] MEDS ORDERED: Perflutren Lipid Microsphere 1.3 ML in 0.9 % Sodium Chloride 8.7 ML IVP ONE (15:23)
[2018-04-25] MEDS ORDERED: Simethicone 80 MG TAB.CHEW PO PRN (22:18)
[2018-04-26] MEDS: *HR* Enoxaparin 40 MG/0.4 ML SYRINGE SQ SCH (05:35)
[2018-04-26] MEDS ORDERED: *HR* Heparin 5,000 UNIT/ML VIAL SQ SCH (06:00)
[2018-04-26 07:33] LABS: Basophils % 0.4 %; Eosinophils # 0.2 K/mcL (0.0-0.6); Eosinophils % 2.5 %; Hematocrit 45.3 % (37.5-50.1); Hemoglobin 15.8 g/dL (12.9-16.9); Immature Granulocytes % 0.6 % (0-4); Lymphocytes # 1.8 K/mcL (0.6-4.6); Lymphocytes % 18.7 %; Mean Corpuscular HGB Conc 34.9 g/dL (31.6-35.5); Mean Corpuscular Hemoglobin 27.9 pg (28.0-33.3); Mean Corpuscular Volume 79.9 fL (83.0-100.0); Mean Platelet Volume 9.5 fL (9.4-12.4); Monocytes # 1.1 K/mcL (0.0-1.3); Neutrophils # 6.5 K/mcL (1.6-8.9); Platelet Count 261 K/mcL (140-400); Red Blood Count 5.67 M/mcL (4.19-5.50); Red Cell Distribution Width 12.7 % (11.5-14.5); Segmented Neutrophils % 66.8 %
[2018-04-26 07:59] LABS: BUN/Creatinine Ratio 13 (6-26); Blood Urea Nitrogen 13 mg/dL (6-20); Calcium 9.2 mg/dL (8.6-10.3); Carbon Dioxide 23 mEq/L (23-29); Chloride 102 mEq/L (98-107); Glucose 101 mg/dL (70-105); Osmolality,Calculated 278 (280-300); Potassium 3.9 mEq/L (3.5-5.1); Sodium 134 mEq/L (136-145); eGFR For Non-African Americans > 60 (> 60)
[2018-04-26] MEDS: cefTRIAXone 1,000 MG in Water for inj. (sterile) 20 ML 10 ML IVP SCH (08:53)
[2018-04-26] MEDS: Fluconazole 100 MG TABLET PO SCH (08:53)
[2018-04-26] MEDS: Nicotine 7 MG PATCH.TD24 TD SCH (08:53)
--- NOTE | 2018-04-26 10:17 | Pulmonology Progress Note ---
Date of Encounter: 04/26/18 Time of Encounter: 10:15 Assessment and Plan (1) Pneumonia Current Visit: Yes Status: Acute Likely secondary to cryptococcal pneumonia. As outlined previously this is very rare and immunocompetent patients but has been described in the medical literature. It is possible that his occupational history he has put him at increased risk Need immune system evaluation including HIV IgE G IgA IgM and complement levels Agree with fluconazole 400 mg daily duration of therapy can be determined the outpatient setting he will need either to stay in the hospital for infectious disease to see him tomorrow or outpatient follow up in clinic in 1-2 weeks Results of bronchoscopy her back I would recommend discharging patient on respiratory fluoroquinolone to complete 7 day course for any bacterial coinfection that may exist From pulmonary standpoint evaluated in the entire situation if patient can be guaranteed antimicrobial coverage until follow-up with infectious disease and has a repeat CT scan in 4-6 weeks I feel that it is safe to discharge him and I will defer to the primary team to coordinate discharge Qualifiers: Pneumonia type: due to unspecified organism Laterality: unspecified laterality Lung location: unspecified part of lung Qualified Code(s): J18.9 - Pneumonia, unspecified organism (2) Sleep apnea Current Visit: Yes Status: Chronic High pretest probability for obstructive sleep apnea he will need an outpatient polysomnogram Possible adverse effects of untreated sleep apnea explained including increased risk of stroke, hypertension, headaches, and pulmonary hypertension. Advised not to drive if sleepy as untreated LETICIA can cause motor vehicle accidents. Qualifiers: Sleep apnea type: unspecified type Qualified Code(s): G47.30 - Sleep apnea , unspecified Subjective Principal diagnosis: Pneumonia Interval history: Mr. Arteaga done very well the last 24 hours denies any complaints today chest pain has resolved denies cough or hemoptysis he has remained afebrile since admission Objective PUL Vital signs: Last Vital Signs Temp 97.5 F L 04/26/18 08:49 Pulse 106 04/26/18 08:49 Resp 18 04/26/18 08:49 BP 117/81 04/26/18 08:49 Pulse Ox 94 04/26/18 08:49 General appearance: no acute distress Eyes: nonicteric ENT: oropharynx moist, other (No evidence of thrush) Effort: normal Auscultation: bilateral: clear Cardiovascular: regular rate and rhythm Gastrointestinal: normoactive bowel sounds Integumentary: normal Extremities: no cyanosis, no edema Musculoskeletal: no deformities normal mental status, non-focal exam mood appropriate Results - Laboratory Findings CBC and BMP: 04/26/18 06:40 04/26/18 06:40 PT/INR, D-dimer PT 12.7 Seconds (9.4-12.1) H 04/24/18 03:30 D-Dimer 1084 ng/mLFEU (0-500) H 04/23/18 15:33 Abnormal lab findings: Abnormal lab results RBC 5.67 M/mcL (4.19-5.50) H 04/26/18 06:40 MCV 79.9 fL (83.0-100.0) L 04/26/18 06:40 MCH 27.9 pg (28.0-33.3) L 04/26/18 06:40 PT 12.7 Seconds (9.4-12.1) H 04/24/18 03:30 D-Dimer 1084 ng/mLFEU (0-500) H 04/23/18 15:33 Sodium 134 mEq/L (136-145) L 04/26/18 06:40 Calculated Osmolality 278 (280-300) L 04/26/18 06:40 Ur Specific [place] > 1.030 (1.010-1.025) H 04/23/18 20:44 - Microbiology Findings Microbiology Findings: Microbiology, Last 48 Hours 04/25/18 Unknown Acid Fast Stain - Final Left Lower Lobe Lung 04/25/18 Unknown Acid Fast Stain - Final Right Middle Lobe Lung 04/25/18 Unknown Respiratory Culture - Preliminary Left Lower Lobe Lung 04/25/18 Unknown Respiratory Culture - Preliminary Right Middle Lobe Lung 04/24/18 06:59 Cryptococcal Antigen - Final Serum 04/25/18 00:36 Sputum Culture - Final Sputum 04/24/18 18:53 Legionella Antigen - Final Urine,Clean Catch Streptococcus pneumoniae Antigen (M - Final - Clinical Findings Intake & Output: Intake & Output 04/25/18 04/26/18 04/26/18 23:59 07:59 15:59 Intake Total 370 / 370 Output Total 1100 / 1100 530 / 530 250 / 250 Balance -1090 / -1090 -530 / -530 120 / 120 Weight 173.7 kg Consult Discharge Plan - Plan Referrals: Omer Shepard MD [Partnered Physician] - 05/06/18 10:45 am (You will have to arrive 30 minutes early to your appointment to fill out paperwork. Please bring ID, insurances, and current medication lists. We are located in the medical office building, [address]. If you need to reschedule, please call 24 hours before your appointment date. Thank you. )
--- NOTE | 2018-04-26 11:02 | Internal Med Progress Note ---
Hospitalist Progress Note - Encounter Date of Encounter: 04/26/18 Time of Encounter: 11:01 - Subjective Interval History: 27-year-old male, history of tobacco smoking and chewing presented with chest pain which was said to be pleuritic in nature, and low-grade fever at home. No fever documented in this chart, no leukocytosis, cultures are preliminary negative. Due to elevated d-dimer, CT angiogram was done in the ER which revealed multiple nodules and enlarged masslike lesion 2 x 2 centimeters said to be inflammatory versus infectious versus neoplastic. He is s/p bronchoscopy 04/26 Cryptococcal Ag positive in serum Rh negative, HIV pending, Immunoglobulins pending,resp panel negative He is seen and evaluated at bedside, he has no new complains Day 2 on fluconazole and IV Ceftriaxone and Azithromycin He has decided to wait for eval for insurance and Infectious disease eval for his cryptococal PNS Pulm following, recommendations appreciated - Exam Vitals: Temp Pulse Resp BP Pulse Ox 97.5 F L 106 18 117/81 94 04/26/18 08:49 04/26/18 08:49 04/26/18 08:49 04/26/18 08:49 04/26/18 08:49 Exam: Gen.: No acute distress, alert and oriented 3, morbidly obese ENT: Mucosal membranes moist Respiratory: Lungs are clear to auscultation bilaterally without any wheezing rhonchi or rales Cardiovascular: Normal S1 and S2 regular rate rhythm no murmurs rubs or gallops Abdomen: Soft, non-tender and non-distended with positive bowel sounds Extremities: No lower extremity edema Neuro: AAOX3, no speech deficits, no facial paralysis, moves all limbs spontaneously Skin: No rash/jaundice - Assessment and Plan (1) Obesity Current Visit: Yes Status: Chronic Assessment and Plan: encourage lifestyle modification (2) Lung mass Current Visit: Yes Status: Acute Assessment and Plan: s/p bronch 04/25, culture and cytology sent, continue following work up Will establish follow up with Pulm as out-patient Being treated for cryptococcal PNA at this time (3) DVT prophylaxis Current Visit: Yes Status: Acute Assessment and Plan: SQ heparin (4) Pneumonia Current Visit: Yes Status: Acute Assessment and Plan: Steve cryptococcal Patient with significant occupational exposure s/p bronch 04/25 due to diffuse nodules, cytology, biopsy and cultures sent Serum Cryptococcal Ag positive Patient started on cef/azithro IV with plan to de-escalate and discharge after Infectious disease eval for suspected cryptococcal Ag Started on fluconazole-Day 2 (treatment will be 6-12 months ) if confirmed HIV screening done and pending Resp panel negative Infectious disease eval pending (5) Tobacco abuse Current Visit: Yes Status: Chronic Assessment and Plan: NRT Educated on cessation (6) Pleuritic chest pain Current Visit: Yes Status: Resolved Assessment and Plan: Patient reports resolution (7) Cryptococcus Current Visit: Yes Status: Acute Assessment and Plan: Cryptococcal Ag positive Diffuse lung nodules and significant mass, s/p bronch Continue fluconazole Infectious disease eval will be requested - Time Spent with Patient Total time spent is greater than 50% in coordination of care (as documented) at patient's floor/unit and/or counseling patient: Plan of Care Discussed with: patient Internal Medicine: Result - Labs CBC & Chem 7: 04/26/18 06:40 04/26/18 06:40 Labs: Short CBC 04/26/18 Range/Units 06:40 WBC 9.7 (4.3-11.1) K/mcL Hgb 15.8 (12.9-16.9) g/dL Hct 45.3 (37.5-50.1) % Plt Count 261 (140-400) K/mcL Neutrophils # 6.5 (1.6-8.9) K/mcL BMP 04/26/18 06:40 Sodium 134 L Potassium 3.9 Chloride 102 Carbon Dioxide 23 BUN 13 Creatinine 1.03 Glucose 101 Calcium 9.2 - ABG Interpretation ABG results: PT/INR, D-dimer PT 12.7 Seconds (9.4-12.1) H 04/24/18 03:30 D-Dimer 1084 ng/mLFEU (0-500) H 04/23/18 15:33 - Impressions Impressions Echocardiogram 04/25/18 12:14 Impressions: Technically adequate exam. LVEF 60-65%%. Normal LV chamber size, wall thickness and function. Normal right ventricular structure and function. No valvular regurgitation or vegetations noted. Unable to estimate RVSP due to lack of TR jet. If clinical suspicion of infective endocarditis persists, we recommend JEWEL Left Ventricular Wall Motion: Rest Echo Findings All wall segments showed normal motion. Findings: Study Quality * Technically adequate exam. ECG Findings * Sinus tachycardia. Left Ventricle * LVEF 60-65%%. * Normal LV chamber size, wall thickness and function. * Normal left ventricular diastolic function. Right Ventricle * Normal right ventricular structure and function. Left Atrium * Normal left atrial size. Right Atrium * Normal right atrial size. Aortic Valve * Trileaflet aortic valve. * Trileaflet aortic valve with normal function. * No aortic regurgitation. * No aortic stenosis. Mitral Valve * Normal mitral valve structure and function. * No mitral regurgitation. * No mitral stenosis. Tricuspid Valve * Normal tricuspid valve structure and function. * No tricuspid regurgitation. * No tricuspid stenosis. * Unable to estimate RVSP due to lack of TR jet. Pulmonic Valve * Normal pulmonic valve structure and function. * No pulmonic regurgitation. Aorta * Normally sized aortic root. Pericardium * The pericardium appears normal. IVC * Normal IVC dimensions and inspiratory collapse. Pulmonary Artery * Normal visualized portions of the main pulmonary artery. Consult Discharge Plan - Plan Referrals: Omer Shepard MD [Partnered Physician] - 05/06/18 10:45 am (You will have to arrive 30 minutes early to your appointment to fill out paperwork. Please bring ID, insurances, and current medication lists. We are located in the medical office building, [address]. If you need to reschedule, please call 24 hours before your appointment date. Thank you. ) (1) Obesity Qualifiers: Obesity type: unspecified obesity type Obesity classification: adult class 3 (BMI >= 40) Serious obesity comorbidity presence: without serious comorbidity Body mass index: BMI 45.0-49.9 Qualified Code(s): E66.01 - Morbid (severe) obesity due to excess calories; Z68.42 - Body mass index (BMI) 45.0-49.9, adult (4) Pneumonia Qualifiers: Pneumonia type: due to unspecified organism Laterality: unspecified laterality Lung location: unspecified part of lung Qualified Code(s): J18.9 - Pneumonia, unspecified organism
[2018-04-26] MEDS: Azithromycin 500 MG in D5% in Water 250 ML IVPB SCH (11:27)
[2018-04-26] MEDS: Ipratropium/Albuterol Neb 3 ML IH SCH (20:20)
[2018-04-27] MEDS: Ipratropium/Albuterol Neb 3 ML IH SCH ×5 (00:30→15:46)
[2018-04-27] MEDS: *HR* Enoxaparin 40 MG/0.4 ML SYRINGE SQ SCH (05:25)
[2018-04-27] MEDS: Nicotine 7 MG PATCH.TD24 TD SCH (08:05)
[2018-04-27] MEDS: Fluconazole 100 MG TABLET PO SCH (08:05)
[2018-04-27] MEDS: cefTRIAXone 1,000 MG in Water for inj. (sterile) 20 ML 10 ML IVP SCH (08:06)
--- NOTE | 2018-04-27 10:15 | Pulmonology Progress Note ---
Date of Encounter: 04/27/18 Time of Encounter: 10:00 Assessment and Plan (1) Cryptococcal pneumonitis Status: Acute Put cryptococcal antigen positive with bronchoscopy and BAL so far is negative infectious disease recommended 6-12 months therapy of fluconazole patient was exposed to bird droppings at [place] before the presentation can be a possibility that S cryptococcal pneumonia even in immunocompetent host cryptococcal pneumonia can occur patient is feeling a lot better he gets suspicion whether this cryptococcal pneumonia background atypical pneumonia is responding well to antibiotics to continue antimicrobials according to infectious disease therapy recommendation patient will have follow-up with pulmonology and infectious disease as an outpatient patient verbalized understanding. (2) Sleep apnea Status: Chronic Patient has family history of obstructive sleep apnea patient has symptoms of snoring gagging and choking some witnessed apnea and under fresh sleep patient is motivated to get an outpatient polysomnogram with subsequent CPAP therapy. Follow-up with pulmonology. Qualifiers: Sleep apnea type: unspecified type Qualified Code(s): G47.30 - Sleep apnea , unspecified Subjective Principal diagnosis: Pneumonia Interval history: Patient presenting with respiratory failure due to cryptococcal pneumonia had a bronchoscopy BAL workup so far negative, infectious disease evaluated the patient today looks like before presentation patient was in [place] exposed to a lot of bird droppings denies any other exotic animal exposure denies any chronic cough and sputum production just presented with acute to subacute symptoms with constitutional symptoms mainly. Patient is feeling a lot better. Objective PUL Vital signs: Last Vital Signs Temp 97.6 F 04/27/18 06:32 Pulse 99 04/27/18 06:32 Resp 16 04/27/18 07:42 BP 115/75 04/27/18 06:32 Pulse Ox 94 04/27/18 07:42 Auscultation: bilateral: clear Results - Laboratory Findings CBC and BMP: 04/26/18 06:40 04/26/18 06:40 PT/INR, D-dimer PT 12.7 Seconds (9.4-12.1) H 04/24/18 03:30 D-Dimer 1084 ng/mLFEU (0-500) H 04/23/18 15:33 Abnormal lab findings: Abnormal lab results RBC 5.67 M/mcL (4.19-5.50) H 04/26/18 06:40 MCV 79.9 fL (83.0-100.0) L 04/26/18 06:40 MCH 27.9 pg (28.0-33.3) L 04/26/18 06:40 PT 12.7 Seconds (9.4-12.1) H 04/24/18 03:30 D-Dimer 1084 ng/mLFEU (0-500) H 04/23/18 15:33 Sodium 134 mEq/L (136-145) L 04/26/18 06:40 Calculated Osmolality 278 (280-300) L 04/26/18 06:40 Ur Specific [place] > 1.030 (1.010-1.025) H 04/23/18 20:44 - Microbiology Findings Microbiology Findings: Microbiology, Last 48 Hours 04/25/18 Unknown Respiratory Culture - Preliminary Right Middle Lobe Lung 04/25/18 Unknown Respiratory Culture - Preliminary Left Lower Lobe Lung 04/25/18 Unknown Acid Fast Stain - Final Left Lower Lobe Lung 04/25/18 Unknown Acid Fast Stain - Final Right Middle Lobe Lung 04/24/18 06:59 Cryptococcal Antigen - Final Serum - Clinical Findings Intake & Output: Intake & Output 04/26/18 04/27/18 04/27/18 23:59 07:59 15:59 Intake Total 600 / 600 370 / 370 Output Total 210 / 210 400 / 400 Balance -210 / -210 200 / 200 370 / 370 Weight 172.9 kg Consult Discharge Plan - Plan Instructions: Albuterol (By breathing), Albuterol (By mouth), Amoxicillin/ Clavulanate Potassium (By mouth), Fluconazole (By mouth), Pneumonia (DC) Referrals: [facility] [Provider Group] (The office will call you with a follow up appt.) Omer Shepard MD [Partnered Physician] - 05/06/18 10:45 am (You will have to arrive 30 minutes early to your appointment to fill out paperwork. Please bring ID, insurances, and current medication lists. We are located in the medical office building, [address]. If you need to reschedule, please call 24 hours before your appointment date. Thank you. ) Dorian Dickens MD [Partnered Physician] - 05/13/18 2:20 pm Prescriptions: Albuterol Neb [Proventil Neb] 2.5 mg IH Q4HR PRN #30 vial.neb PRN Reason: Shortness Of Breath Albuterol Sulfate [Albuterol Inhaler] 1 puff IH Q4H PRN #1 puff PRN Reason: Shortness Of Breath Amoxicillin/Clavulanate [Augmentin] 875 mg PO BIDWM #12 tablet Fluconazole [Diflucan] 400 mg PO DAILY #60 tab
[2018-04-27] MEDS: Azithromycin 500 MG in D5% in Water 250 ML IVPB SCH (10:34)
--- NOTE | 2018-04-27 10:46 | Discharge Summary ---
- NOTES TO OUTPATIENT PROVIDER Notes to Outpatient Provider: Admitted for chest pain, incidental finding of PNA , suspected Lung mass and likely fungal pneumonia due to cryptococcus. Immunoglobulins, HIV screening, BAL, cytology and biopsy results pending. Infectious disease consulted on account of cryptococcal pneumonia in the an otherwise healthy patient. Patient is discharged on Omnicef and azithromycin for community-acquired pneumonia, as well as fluconazole for suspected cryptococcal pneumonia. Follow-up is recommended with primary care physician, pulmonology, and infectious disease. Educated on possible side effects fluconazole, educated on tobacco cessation. Verbalized understanding. Orders not resulted at time of discharge: Pending orders 04/24/18 18:21 POORNIMA IgG ESEQUIEL rflx IFA Routine Angiotensin Converting Enzyme Routine Aspergillus spp. Ab by ID Routine CCP IgG Routine Fungal Ab by CF, EIA Routine Fungitell (1,3)-[id number] Routine HIV Qualitative PCR(Detection) Routine Histoplasma Antigen Routine MPO/PR3 (ANCA) Antibodies Routine 04/24/18 18:53 Histoplasma galactomannan,Ur Routine 04/25/18 AFB Culture, Respiratory [TB] Routine AFB Culture, Respiratory [TB] Routine AFB Smear [TB] Routine AFB Smear [TB] Routine Culture,Respiratory [RM] Routine Culture,Respiratory [RM] Routine Fungal Culture [MYC] Routine Fungal Culture [MYC] Routine Legionella Culture [RM] Routine Legionella Culture [RM] Routine Resp.Virus Panel,Body Fl Routine Resp.Virus Panel,Body Fl Routine 04/25/18 08:15 Cytology [PTH] Routine 04/25/18 08:17 Cytology [PTH] Routine Date of Encounter: 04/27/18 Time of Encounter: 10:46 - Discharge Diagnosis (1) Obesity Priority: Secondary Status: Chronic Qualifiers: Obesity type: unspecified obesity type Obesity classification: adult class 3 (BMI >= 40) Serious obesity comorbidity presence: without serious comorbidity Body mass index: BMI 45.0-49.9 Qualified Code(s): E66.01 - Morbid (severe) obesity due to excess calories; Z68.42 - Body mass index (BMI) 45.0-49.9, adult (2) Lung mass Priority: Primary Status: Acute (3) DVT prophylaxis Priority: Primary Status: Acute (4) Pneumonia Priority: Primary Status: Acute Qualifiers: Pneumonia type: due to unspecified organism Laterality: unspecified laterality Lung location: unspecified part of lung Qualified Code(s): J18.9 - Pneumonia, unspecified organism (5) Tobacco abuse Priority: Secondary Status: Chronic (6) Pleuritic chest pain Priority: Primary Status: Resolved (7) Cryptococcus Priority: Primary Status: Acute Hospital course: Mr. Perkins is a 27 year old male with no prior medical history He was admitted for chest pain, incidental finding of PNA, suspected Lung mass and likely fungal pneumonia due to cryptococcus. Patient also endorsed shortness of breath. However, his symptoms resolved promptly with antibiotic, breathing treatment. Due to her chest CT findings of suspected lung mass versus septic emboli, pulmonology was consulted. The patient had SIRS findings during admission, he had no evidence of sepsis, he is not an IV drug user, he has no weight loss or any other signs or symptoms of malignancy. He smokes 1 pack of cigarettes per week. Part of his work up showed Cryptococcus Ag positive in serum, no titres were obtained s/p bronchoscopy 04/25. Immunoglobulins, HIV screening, BAL, cytology and biopsy results pending. ACEI , Fungal culture, Fungitell, Hepatitis panel, Histoplasma Ag, TB quantiferon pending Urine legionealla and pneumococcal Ag negative, as well as blood and sputum cultures Infectious disease consulted on account of cryptococcal pneumonia in the an otherwise healthy patient. Recommended patient be discharged on Augmentin for community-acquired pneumonia , as well as fluconazole for suspected cryptococcal pneumonia. Follow-up is recommended with primary care physician, pulmonology, and infectious disease. Educated on possible side effects fluconazole, educated on tobacco cessation. Patient is also [facility] suspicion for LETICIA, recommend sleep study as out-patient Verbalized understanding. Discharge discussed with: patient, family, nurse, case management, consumer services consultant Time spent discussing smoking cessation with patient: 3 to 10 minutes - Time Spent with Patient Total time spent providing and/or coordinating discharge services: Greater than 30 minutes - Discharge Medications Prescriptions: Albuterol Neb [Proventil Neb] 2.5 mg IH Q4HR PRN #30 vial.neb PRN Reason: Shortness Of Breath Albuterol Sulfate [Albuterol Inhaler] 1 puff IH Q4H PRN #1 puff PRN Reason: Shortness Of Breath Amoxicillin/Clavulanate [Augmentin] 875 mg PO BIDWM #12 tablet Fluconazole [Diflucan] 400 mg PO DAILY #60 tab Home Medications: Albuterol Neb [Proventil Neb] 2.5 mg IH Q4HR PRN #30 vial.neb 04/27/18 [Rx] Albuterol Sulfate [Albuterol Inhaler] 1 puff IH Q4H PRN #1 puff 04/27/18 [Rx] Amoxicillin/Clavulanate [Augmentin] 875 mg PO BIDWM #12 tablet 04/27/18 [Rx] Fluconazole [Diflucan] 400 mg PO DAILY #60 tab 04/27/18 [Rx] Allergies/Adverse Reactions: 3 Allergy/AdvReac Type Severity Reaction Status Date / Time No Known Allergies Allergy Verified 10/06/17 12:01 Date of admission: 04/23/18 19:47 Primary care physician: PCP NONE Consults: 04/23/18 20:59 Consult to Ship Mate [CONS] Routine Reason for SW Consult: needs to establish PCP for f/u x-ray 04/24/18 14:33 Consult to Pulmonology [CONS] Routine Consulting Provider: [facility] Reason for Consult: Lung mass Call Completed: Yes 04/26/18 08:15 Consult to Infectious Diseases [CONS] Routine Consulting Provider: [facility] Reason for Consult: Suspected cryptococcal PNA Call Completed: Yes Discharging clinician: Willie Woodruff Anticipated date of discharge: 04/27/18 - Constitutional Vitals: Temp Pulse Resp BP Pulse Ox 97.6 F 99 16 115/75 94 04/27/18 06:32 04/27/18 06:32 04/27/18 07:42 04/27/18 06:32 04/27/18 07:42 General appearance: Present: A&O X 3, morbidly obese, pleasant, no acute distress, answers questions appropriately Exam: see below - Head Head exam: Present: atraumatic, normocephalic - Eye Eye exam: Present: PERRL, conjuntiva pink, sclera anicteric Pupils: Present: PERRL - Neck Neck exam general surgery: Present: supple, trachea midline. Absent: lymphadenopathy - Respiratory Respiratory exam: Present: CTAB. Absent: accessory muscle use, rales, rhonchi, wheezes - Cardiovascular Cardiovascular exam: Present: RRR, +S1, +S2. Absent: diastolic murmur, gallop, rubs, systolic murmur - GI/Abdominal GI/Abdominal exam: Present: normal bowel sounds, soft, no peritoneal signs. Absent: distended, tenderness - Extremities Exam Extremities exam: Present: warm, radial pulses palpable and symmetrical. Absent : calf tenderness, cyanotic, pedal edema - Neurological Exam Neurological exam: Present: CN II-XII intact, oriented X3, no focal deficits. Absent: pronater drift, facial droop, speech deficit - Skin Skin exam: Present: dry, intact - Patient Status Disposition: Home, Self-Care Condition: Good Functional capacity at discharge: independent ambulation Overall status at discharge: patient is back to baseline - Discharge Instructions Follow Up With: Omer Shepard MD [Partnered Physician] - 05/06/18 10:45 am (You will have to arrive 30 minutes early to your appointment to fill out paperwork. Please bring ID, insurances, and current medication lists. We are located in the medical office building, [address]. If you need to reschedule, please call 24 hours before your appointment date. Thank you. ) - Diet and Activity Activity: resume usual activities as tolerated Diet: low fat, low cholesterol
[2018-04-27 12:04] LABS: Myeloperoxidase Ab 0 AU/mL (0-19); Serine Protease-3 Antibody 2 AU/mL (0-19)
--- NOTE | 2018-04-27 14:11 | Infectious Disease Consult ---
Date of Encounter: 04/27/18 Time of Encounter: 14:01 Assessment and Plan (1) Cryptococcal pneumonitis Status: Acute Assessment and plan: CT chest revealing masslike lesion in the right middle lobe measuring 2.94.2 cm with multiple small nodules bilaterally Status post bronchoscopy and BAL on 04/25/2018 Bronchoscopy: Acute mucosal inflammation was visualized throughout the tracheobronchial tree BAL: So far aspirate culture and AFB stains are negative GMS stain not done yet awaiting pathology; called the pathologist and discussed the case with him Urine legionella and pneumococcal antigen negative Mr. infectious panel negative Cryptococcal antigen was positive; titers pending I am not sure if the patient has any reason to be immunosuppressed. I will check HIV and hepatitis status although his risk factors are low. I will also check a lymphocyte panel. Agree with fluconazole 400 mg daily. While on fluconazole we will check LFTs weekly 4 and if they continue to be normal we can increase it to every 4 weeks I spent to the patient that while on fluconazole is not allowed to be drinking alcohol Duration of treatment likely 6 months to a year Follow-up with me in clinic on 05/13/2018 at 2:40 PM (2) Pneumonia Status: Acute Assessment and plan: Likely secondary to cryptococcus. Reviewed the CTs with the pulmonary team There is no obvious bacterial infection since he had negative respiratory infectious panel negative strep and negative pneumococcal antigen The only thing is he can tells me he felt so much better in the last 2 days has been here. I do not believe that fluconazole works fast. On discharge consider giving the patient the oral Augmentin to finish a 10 day course in addition to the fluconazole Qualifiers: Pneumonia type: due to unspecified organism Laterality: unspecified laterality Lung location: unspecified part of lung Qualified Code(s): J18.9 - Pneumonia, unspecified organism (3) Morbid obesity with BMI of 45.0-49.9, adult Status: Acute (4) Tobacco abuse Status: Chronic Assessment and plan: He quit a few weeks back (5) Sleep apnea Status: Chronic Qualifiers: Sleep apnea type: unspecified type Qualified Code(s): G47.30 - Sleep apnea , unspecified Infectious Disease HPI - Data of Consult Patient: new to practice Consult date: 04/27/18 Requesting Physician: Willie Woodruff MD Primary Care Provider: PCP NONE - Consult Narrative Reason for consult: cryptococcal pneumonia History of present illness: Mr. Perkins is a 27 year old male 70-year-old gentleman with past medical history mentioned below who is currently not taking any medications. Patient does not have any surgical history that he knows of. Patient lives with his and 2-year-old son and has another son that visits every other week came in with shortness of breath pleuritic chest pain that started on the left side of the heart radiating to the shoulder and neck. There was associated dyspnea and had significant dyspnea on exertion. Patient tells me that he was having some cough but nonproductive. No sputum no hemoptysis. Patient denied any headache or neck stiffness or meningeal signs. Patient had one episode of diarrhea a day before coming in. Patient denies any sick contacts. Patient did have a low-grade fever of 99.9. Denies any chills or rigors. Patient denies any night sweats or weight loss. Patient tells me that he lives here in [place] and previously he lived in [place] and [place]. Patient has never traveled outside of the . Patient has never been incarcerated. Patient has not served in the . Patient history is positive for chlamydia when he was in [place]. Patient denies ever having any STDs other than the chlamydia, never had hepatitis or HIV. Patient is sexually active only with his and the been since July. Patient tells me that he has never had any recreational drugs IV or otherwise. Patient drinks seldomly and quit smoking a few years back. 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 Since admission patient has not had any SIRS criteria. No leukocytosis no bandemia and normal differential. Respiratory infectious panel was obtained came back negative. Rheumatoid factor was normal myeloperoxidase and Serine protease both came back normal. CT of the chest revealed a masslike opacity is seen within the right middle lobe measuring 2.94.2 cm. Multiple additional nodules are seen within the lungs bilaterally with surrounding ground glass opacification most prominently involving the left lower lobe. The distribution of opacities within the lung bilaterally is nonspecific and may represent an infectious/inflammatory versus neoplastic process. Patient underwent a bronchoscopy with BAL. The [facility] report reveals bilateral mildly acutely inflamed mucosa was found throughout the tracheobronchial tree. It was most pronounced in the right middle lobe. BAL revealed no positive cultures. AFB smears have been negative. Blood cultures have been negative. Strep pneumo antigen and Legionella antigen were negative. Patient had a crypto antigen that came back positive. No titer was obtained. CC: Willie Woodruff MD Past Med Surg Social Fam HX - Past Medical History Medical history: no medical history Psychiatric history: no psych history - Past Surgical History Surgical History: no surgical history - Social History Smoking Status: Current some day smoker Smokeless Tobacco Status: Yes Alcohol use: occasionally Drug use: none - Family History Mother Hx Family Cancer: Yes (skin unknown type) Grandfather Hx Family Cancer: Yes (Lung cancer) Infectious Disease-CN:Meds Azithromycin [Zithromax Tri-Shahab] 500 mg PO DAILY 2 Days #2 tablet 04/27/18 [Rx] Cefdinir [Omnicef] 300 mg PO BID 3 Days #6 capsule 04/27/18 [Rx] Fluconazole [Diflucan] 400 mg PO DAILY #60 tab 04/27/18 [Rx] 3 Allergy/AdvReac Type Severity Reaction Status Date / Time No Known Allergies Allergy Verified 10/06/17 12:01 Review of systems: 10 point review of systems done, negative other for what mentioned in history of present illness Exam - Constitutional Vitals: Temp Pulse Resp BP Pulse Ox 98.2 F 109 16 135/82 96 04/27/18 11:38 04/27/18 11:38 04/27/18 11:38 04/27/18 11:38 04/27/18 11:38 General appearance: cooperative, no acute distress, no febrile - Head Head exam: Present: normal inspection, normocephalic - Eye Eye exam: Present: EOMI, PERRL, sclera anicteric - ENT ENT exam: Present: mucous membranes moist Additional comments: No oral lesions - Neck Neck exam: Present: full ROM. Absent: lymphadenopathy, meningismus - Respiratory Respiratory exam: Present: CTAB. Absent: rhonchi, wheezes - Cardiovascular Cardiovascular exam: Present: RRR, +S1, +S2. Absent: systolic murmur - GI/Abdominal GI/Abdominal exam: Present: normal bowel sounds, soft. Absent: tenderness - Extremities Exam Extremities exam: Present: full ROM, normal inspection. Absent: pedal edema - Back Exam Back exam: Absent: CVA tenderness (L), CVA tenderness (R) - Neurological Exam Neurological exam: Present: alert, oriented X3. Absent: no focal deficits - Skin Skin exam: Present: normal color. Absent: rash, vesicles Infectious Disease CN: Results - Labs CBC & Chem 7: 04/26/18 06:40 04/26/18 06:40 Cultures: Cultures 04/25/18 Unknown Respiratory Culture - Final Right Middle Lobe Lung 04/25/18 Unknown Respiratory Culture - Final Left Lower Lobe Lung 04/25/18 Unknown Acid Fast Stain - Final Left Lower Lobe Lung 04/25/18 Unknown Acid Fast Stain - Final Right Middle Lobe Lung 04/24/18 06:59 Cryptococcal Antigen - Final Serum 04/25/18 00:36 Sputum Culture - Final Sputum 04/24/18 18:53 Legionella Antigen - Final Urine,Clean Catch Streptococcus pneumoniae Antigen (M - Final Serology: Serology 04/25/18 04/25/18 04/24/18 Range/Units Unknown Unknown 18:23 Urine Color (Yellow) Urine Clarity (Clear) Urine pH (5.0-8.0) pH Units Ur Specific [place] (1.010-1.025) Urine Protein (Neg-Trace) mg/dL Urine Glucose (UA) (Normal) mg/dL Urine Ketones (Negative) mg/dL Urine Blood (Negative) Urine Nitrite (Negative) Urine Bilirubin (Negative) Urine Urobilinogen (Normal) mg/dL Ur Leukocyte Esterase (Negative) Ur Culture Indicated? (NO) Fluid Source left lower lobe BAL right middle lobe BA Fluid Volume 4 15 mL Fluid Appearance Clear Slightly Hazy A (Clear) Fluid RBC < 0.002 < 0.002 (No Ref Range) M/mcL Fld Tot Nucleated Cell 147 377 (No Ref Range) TNC/mcL Fluid Seg Neutrophil % 54.0 78.0 % Fld Band Neutrophil % Test Not Performed Test Not Performed Fluid Lymphocytes % 30.0 18.0 % Fluid Monocytes % 2.0 Test Not Performed Fluid Eosinophils % Test Not Performed Test Not Performed Fluid Basophils % Test Not Performed Test Not Performed Fluid Other Cells % 14.0 4.0 % Chlamy pneumoniae PCR Not Detected (Not Detect) Adenovirus (PCR) Not Detected (Not Detect) B. pertussis DNA (PCR) Not Detected (Not Detect) B.parapertussis DNA PCR Not Detected (Not Detect) Coronavirus OC43 (PCR) Not Detected (Not Detect) Coronavirus HKU1 (PCR) Not Detected (Not Detect) Coronavirus 229E (PCR) Not Detected (Not Detect) Coronavirus NL63 (PCR) Not Detected (Not Detect) Human Metapneumovir PCR Not Detected (Not Detect) Influenza A (H1) PCR Not Detected (Not Detect) Influ A (H1N1/09) PCR Not Detected (Not Detect) Influenza A (H3) PCR Not Detected (Not Detect) Influenza A Untype (PCR) Not Detected (Not Detect) Influenza Type B (PCR) Not Detected (Not Detect) M.pneumoniae DNA (PCR) Not Detected (Not Detect) Parainfluenza 1 (PCR) Not Detected (Not Detect) Parainfluenza 2 (PCR) Not Detected (Not Detect) Parainfluenza 3 (PCR) Not Detected (Not Detect) Parainfluenza 4 (PCR) Not Detected (Not Detect) RSV (PCR) Not Detected (Not Detect) Entero/Rhino (PCR) Not Detected (Not Detect) 04/23/18 Range/Units 20:44 Urine Color Yellow (Yellow) Urine Clarity Clear (Clear) Urine pH 6.0 (5.0-8.0) pH Units Ur Specific [place] > 1.030 H (1.010-1.025) Urine Protein Negative (Neg-Trace) mg/dL Urine Glucose (UA) Normal (Normal) mg/dL Urine Ketones Negative (Negative) mg/dL Urine Blood Negative (Negative) Urine Nitrite Negative (Negative) Urine Bilirubin Negative (Negative) Urine Urobilinogen Normal (Normal) mg/dL Ur Leukocyte Esterase Negative (Negative) Ur Culture Indicated? NO (NO) Fluid Source Fluid Volume mL Fluid Appearance (Clear) Fluid RBC (No Ref Range) M/mcL Fld Tot Nucleated Cell (No Ref Range) TNC/mcL Fluid Seg Neutrophil % % Fld Band Neutrophil % Fluid Lymphocytes % % Fluid Monocytes % Fluid Eosinophils % Fluid Basophils % Fluid Other Cells % % Chlamy pneumoniae PCR (Not Detect) Adenovirus (PCR) (Not Detect) B. pertussis DNA (PCR) (Not Detect) B.parapertussis DNA PCR (Not Detect) Coronavirus OC43 (PCR) (Not Detect) Coronavirus HKU1 (PCR) (Not Detect) Coronavirus 229E (PCR) (Not Detect) Coronavirus NL63 (PCR) (Not Detect) Human Metapneumovir PCR (Not Detect) Influenza A (H1) PCR (Not Detect) Influ A (H1N1/09) PCR (Not Detect) Influenza A (H3) PCR (Not Detect) Influenza A Untype (PCR) (Not Detect) Influenza Type B (PCR) (Not Detect) M.pneumoniae DNA (PCR) (Not Detect) Parainfluenza 1 (PCR) (Not Detect) Parainfluenza 2 (PCR) (Not Detect) Parainfluenza 3 (PCR) (Not Detect) Parainfluenza 4 (PCR) (Not Detect) RSV (PCR) (Not Detect) Entero/Rhino (PCR) (Not Detect) Consult Discharge Plan - Plan Referrals: Omer Shepard MD [Partnered Physician] - 05/06/18 10:45 am (You will have to arrive 30 minutes early to your appointment to fill out paperwork. Please bring ID, insurances, and current medication lists. We are located in the medical office building, [address]. If you need to reschedule, please call 24 hours before your appointment date. Thank you. ) Prescriptions: Azithromycin [Zithromax Tri-Shahab] 500 mg PO DAILY 2 Days #2 tablet Cefdinir [Omnicef] 300 mg PO BID 3 Days #6 capsule Fluconazole [Diflucan] 400 mg PO DAILY #60 tab
[2018-04-27 15:04] LABS: Angiotensin Converting Enzyme 26 U/L (9-67)
[2018-04-27 15:32] LABS: HIV-1&2 Antibody & p24 Ag Nonreactive (Nonreactive); Hepatitis B Surface Antigen Nonreactive (Nonreactive); Hepatitis C Virus Antibody Nonreactive (Nonreactive)
[2018-04-27 16:14] VITALS: BP 173/70
[2018-04-28 08:29] LABS: ANA IgG by ELISA NONE DETECTED (None Detected)
[2018-04-28 11:04] LABS: Influenza A PCR Body Fluid NOT DETECTED; Influenza B PCR Body Fluid NOT DETECTED; RVP Body Fluid Source BAL
[2018-04-28 15:20] LABS: RSV PCR Body Fluid NOT DETECTED
[2018-04-28 15:21] LABS: RSV PCR Body Fluid NOT DETECTED
[2018-04-30 11:30] LABS: Aspergillus Ab by CF <1:8 (<1:8); Aspergillus spp. Ab by ID NONE DETECTED (None Detected); Coccidioides Ab by CF <1:2 (<1:2)
[2018-05-01 21:32] LABS: QuantiFERON Mitogen minus NIL 5.82 IU/mL
[2018-05-02 11:05] LABS: QuantiFERON NIL 0.13 IU/mL; QuantiFERON-TB Gold In-Tube NEGATIVE (Negative)
== END 2018-04-27 17:11 | disposition home or self-care (01) ==
LOC: EMEROOARM 14:55 → 3BNU 14:55 → SUATTDRO 19:47 → 3BNU 23:39
PROVIDERS: ADMIT Pediatrics; ATTEND Internal Medicine